=== PATIENT | female | born 1945 | race Caucasian/White ===

== ENCOUNTER 2019-05-10 11:56 | Emergency (ER) | payer MEDICARE, MEDICAID ==
[~2019-05-10] VITALS: Ht 162.6 cm; Wt 63.6 kg
[2019-05-10 12:04] VITALS: Ht 162.6 cm; Wt 63.6 kg
[2019-05-10] MEDS ORDERED: IMODIUM2 MG PO (12:07)
[2019-05-10] MEDS ORDERED: OMEPRAZOLE40 MG PO (12:08)
[2019-05-10] MEDS ORDERED: HYDROCHLOROTHIA25 MG PO (12:08)
[2019-05-10] MEDS ORDERED: CELEXA20 MG PO (12:08)
[2019-05-10] MEDS ORDERED: LOMOTIL 2.5-0.1 EAC1 PO (13:43)
[2019-05-10] MEDS ORDERED: ZOFRAN4 MG PO (13:43)
[2019-05-10 14:00] VITALS: BP 97/77
== END 2019-05-10 14:36 | disposition home or self-care (01) ==
LOC: D.ER 11:56
DX: R11.10 Vomiting, unspecified (principal); R19.7 Diarrhea, unspecified; I10 Essential (primary) hypertension

== ENCOUNTER 2019-06-19 12:48 | Day surgery (SDC) | payer MEDICARE, MEDICAID ==
[~2019-06-19] VITALS: Ht 162.6 cm; Wt 66.4 kg
[~2019-06-19 12:48] MED LIST: CELEXA20 MG PO; HYDROCHLOROTHIA25 MG PO; IMODIUM2 MG PO; LOMOTIL 2.5-0.1 EAC1 PO; OMEPRAZOLE40 MG PO; ZOFRAN4 MG PO
[2019-06-19 13:12] LABS: BASOPHILS 0.3 % (0-2); EOSINOPHILS 0.4 % (0-7); HEMOGLOBIN 14.2 g/dL (12-16); IMMATURE GRANULOCYTES 0.1 % (0-5); LYMPHOCYTES 24.5 % (15-50); MCH 31.3 pg (26.0-34.0); MCHC 33.8 g/dL (31.0-37.0); MCV 92.7 fL (80.0-100.0); MEAN PLATELET VOLUME 8.6 fL (7.4-10.4); MONOCYTES 8.5 % (2-11); NEUTROPHILS 66.2 % (40-80); PLATELET COUNT 267 10x3/uL (130-400); RBC 4.53 10x6/uL (4.00-5.40); WBC 7.3 10x3/uL (4.8-10.8)
[2019-06-19 13:17] LABS: APTT 27.2 SECONDS (22.8-39.4); PROTIME 13.1 SECONDS (11.6-15.0)
[2019-06-19 13:22] LABS: ANION GAP 8.8 mmol/L (8-16); CALCIUM 9.2 mg/dL (8.5-10.1); CARBON DIOXIDE 31.7 mmol/L (21.0-32.0); CREATININE - SERUM 0.8 mg/dL (0.6-1.3); POTASSIUM - SERUM 3.5 mmol/L (3.5-5.1)
[2019-06-19 13:47] VITALS: BP 123/72; Ht 162.6 cm; Wt 66.4 kg
--- NOTE | 2019-06-19 15:34 | NUR ---
DC INSTRUCTIONS GIVEN TO PT. STATES UNDERSTANDING. DC'D IV CATH FULLY INTACT. PT LEFT UNIT VIA AT 1318
--- NOTE | 2019-06-20 09:55 | OP ---
PATIENT NAME: REED HUITRON MEDICAL RECORD: [id number] :49 LOCATION:[facility] ADMISSION DATE: SURGEON: ALON ORLANDO DO DATE OF OPERATION: 06/19/2019 PROCEDURE: Colonoscopy with biopsies. INDICATIONS FOR PROCEDURE: History of diarrhea, small-bowel obstruction requiring surgeries, and malignant tumor of the colon in 2008, status post chemotherapy and radiation therapy and bowel resection. SCOPE: Olympus video pediatric colonoscope. MEDICATIONS: Propofol 400 mg IV per anesthesia. WITHDRAWAL TIME: 10 minutes. ESTIMATED BLOOD LOSS: Minimal. COMPLICATIONS: None. FINDINGS: Informed consent was given. The patient was made comfortable with the above medication. After reaching an adequate level of sedation by slow IV push, the patient was placed on her left side. A digital rectal examination was performed and was normal. The endoscope was advanced under direct visualization through the rectum to the ileocolonic anastomosis. The endoscope was slowly withdrawn and mucosa was carefully examined. Prep quality was good. There were no polyps visualized on today's examination. The colon had some friability and erythema in the rectosigmoid regions which is likely a result of past radiation therapy and resection. Two anastomoses were identified. The first was a colocolonic anastomosis in the rectosigmoid region and the other was an ileocolonic anastomosis. The endoscope was not able to traverse the ileocolonic anastomosis due to looping. There were no polyps visualized on today's examination. Random biopsies were taken due to a history of diarrhea. These will be submitted for histopathology and to rule out the presence of microscopic colitis. Retroflexion was not performed in the rectum due to a small rectal vault and friability. The endoscope was withdrawn from the patient. The patient tolerated the procedure well and there were no immediate complications. IMPRESSION: 1. Evidence of prior intervention in the form of 2 prior surgeries. 2. Friable and erythematous mucosa in the rectosigmoid region consistent with past radiation therapy. PLAN AND RECOMMENDATIONS: 1. Discharge home when recovery parameters are met. 2. Follow up biopsy specimen results. 3. High fiber diet. 4. Continue current medications. 5. Recall colonoscopy in 5 years. TRANSINT:[id number] Voice Confirmation ID: [id number] DOCUMENT ID: [id number] OPERATIVE REPORT [id number] REED HUITRON ALON ORLANDO DO at 0955 CC: [id number] DICTATION DATE: 06/19/19 1448 DIRECTOR OF ENTERPRISE ARCHITECTURE: 06/19/191922 [facility] 06/19/19 [facility] [address] [place] [address]
== END 2019-06-19 15:28 | disposition home or self-care (01) ==
LOC: D.OPS 12:48
PROVIDERS: Anesthesiology; ATTEND Internal Medicine Gastroenterology
DX: R19.7 Diarrhea, unspecified (principal); Z85.038 Personal history of other malignant neoplasm of large intestine; R13.10 Dysphagia, unspecified; R11.0 Nausea; R10.13 Epigastric pain; K56.609 Unspecified intestinal obstruction, unspecified as to partial versus complete obstruction

== ENCOUNTER → 2019-06-26 08:36 | Outpatient (CLI) | payer MEDICARE, MEDICAID ==
[2019-06-19 13:47] VITALS: BMI 25.1
== END | disposition home or self-care (01) ==
LOC: D.RAD 06-16 08:00
PROVIDERS: ATTEND Internal Medicine Gastroenterology
DX: K56.609 Unspecified intestinal obstruction, unspecified as to partial versus complete obstruction (principal); R19.7 Diarrhea, unspecified; R11.0 Nausea